=== PATIENT | male | born 1995 | race Two or more races ===

== ENCOUNTER 2019-05-24 18:41 | Emergency (ER) | payer OTHER ==
--- NOTE | 2019-05-24 18:58 | ER Document Report ---
HPI - HPI Time Seen by Provider: 05/24/19 18:43 Quality of pain: No pain Pain Level: Denies Context: Patient presents stating that he wants to be evaluated for possible STDs. Patient states he wants to be tested for syphilis, HIV as well as gonorrhea and chlamydia at this time. Patient denies any symptoms. Patient is here with his partner who is also seeking evaluation. Patient denies any abnormal skin lesions or rashes. Associated Symptoms: None Exacerbated by: Denies Relieved by: Denies Similar symptoms previously: No Recently seen / treated by doctor: No - ROS ROS below otherwise negative: Yes Systems Reviewed and Negative: Yes All other systems reviewed and negative - CONSTITUTIONAL Constitutional: DENIES: Fever, Chills - GASTROINTESTINAL Gastrointestinal: DENIES: Abdominal Pain, Nausea, Patient vomiting - URINARY Urinary: DENIES: Dysuria, Urgency, Frequency - REPRODUCTIVE Reproductive: DENIES: Abnormal bleeding / discharge - DERM Skin Color: Normal Skin Problems: None Past Medical History - General Information source: Patient - Social History Smoking Status: Current Every Day Smoker Chew tobacco use (# tins/day): No Frequency of alcohol use: None Drug Abuse: None Occupation: Family History: Reviewed & Not Pertinent Patient has suicidal ideation: No Patient has homicidal ideation: No - Medical History Medical History: Negative Surgical Hx: Negative Vertical Provider Document - CONSTITUTIONAL Agree With Documented VS: Yes Exam Limitations: No Limitations General Appearance: WD/WN, No Apparent Distress - HEENT HEENT: Atraumatic, Normocephalic - NECK Neck: Normal Inspection, Supple - RESPIRATORY Respiratory: Breath Sounds Normal, No Respiratory Distress - CARDIOVASCULAR Cardiovascular: Regular Rate, Regular Rhythm, No Murmur - GI/ABDOMEN Gastrointestinal: Abdomen Soft - BACK Back: Normal Inspection. negative: CVA Tenderness-Right, CVA Tenderness-Left - MUSCULOSKELETAL/EXTREMETIES Musculoskeletal/Extremeties: MAEW - NEURO Level of Consciousness: Awake, Alert, Appropriate Motor/Sensory: No Motor Deficit - DERM Integumentary: Warm, Dry, No Rash Course - Re-evaluation Re-evalutation: 05/24/19 20:46 The patient was evaluated during the global Covid 19 pandemic, and choice of medication was based on current resources. Patient denies any symptoms although is requesting testing for STI per his partner's request. - Vital Signs Vital signs: Temp Pulse Resp BP Pulse Ox 98.9 F 80 16 138/81 H 98 05/24/19 18:46 05/24/19 18:46 05/24/19 18:46 05/24/19 18:46 05/24/19 18:46 Discharge - Discharge Clinical Impression: Concern about STD in male without diagnosis Condition: Stable Disposition: HOME, SELF-CARE Instructions: Doxycycline ([facility]), Rocephin ([facility]) Additional Instructions: Return immediately for any new or worsening symptoms Followup with your primary care provider, call tomorrow to make a followup appointment Cultures are pending, we will call if you need any different treatment Prescriptions: Doxycycline Hyclate 100 mg PO BID #14 tablet. Referrals: [facility] [NO LOCAL MD] - Follow up as needed
[2019-05-24] MEDS ORDERED: DOXYCYCLINE HYCLATE 100 MG TABLET PO ONE (20:27)
[2019-05-24] MEDS ORDERED: LIDOCAINE 1% INJ (10 MG/ML) 10 ML MDV INJ ONE (20:27)
[2019-05-24] MEDS ORDERED: CEFTRIAXONE INJ 250 MG VIAL IM ONE (20:27)
[2019-05-24 20:55] VITALS: BP 135/77
[2019-05-24 21:04] LABS: CHLAM PCR NOT DETECTED (NOT DETECT)
== END 2019-05-24 20:55 | disposition home or self-care (01) ==
LOC: ER 18:41
DX: Z20.2 Contact with and (suspected) exposure to infections with a predominantly sexual mode of transmission (principal); F17.200 Nicotine dependence, unspecified, uncomplicated
CPT/HCPCS: 99283; 96372; 36415; 86592; 86701; 87491; 87591; J0696